=== PATIENT | male | born 1990 | race Caucasian/White ===

== ENCOUNTER 2017-03-12 22:35 | Emergency (ER) | payer SELFPAY ==
[~2017-03-12] VITALS: Ht 175.3 cm; Wt 59.0 kg
[2017-03-12] MEDS ORDERED: NO MEDICATIONS (22:43)
== END 2017-03-13 01:24 | disposition left against medical advice (07) ==
LOC: SED 22:35
DX: F10.129 Alcohol abuse with intoxication, unspecified (principal)
CPT/HCPCS: 99284